=== PATIENT | male | born 1980 | race Caucasian/White ===

== ENCOUNTER 2025-08-26 08:48 | Emergency (ER) | payer OTHER, SELFPAY ==
[2025-08-26 08:54] VITALS: BP 171/105
[2025-08-26 09:16] VITALS: BMI 27.3
--- NOTE | 2025-08-26 09:18 | ED.GENMED ---
History of Present Illness
General
Chief Complaint: Throat Problem
Source: patient
Exam Limitations: none
Time Seen by Provider: 08/26/25 09:08
Nursing documentation reviewed up to this point in time: agreed with
History of Present Illness
History of Present Illness:
45-year-old male who presents with throat discomfort and sharp pain upon swallowing, particularly on the left side. The symptoms began last night after he consumed a piece of turkey with gristle without sufficient chewing, leading to immediate
discomfort. The patient describes the pain as 'sharp' and notes that it occurs a second after swallowing. Although the patient can drink, it is unclear if eating exacerbates the symptoms as he has not tried eating since the onset.Denies chest pain
or SOB.
Past History
Past History
ED Past Medical History: None
ED Past Surgical History: None
Social History
Tobacco: Non-smoker
Alcohol: Occasional
Personal:
Living: with family
Employment: Employed
Review of Systems
Review of Systems
Allergies reviewed?: Yes
All Other Systems: ROS reviewed and negative except as documented in HPI and ROS
EENT: Reports other (FB sensation left side throat)
Respiratory: Denies trouble breathing
Cardiac: Denies chest pain
ABD/GI: Denies abdominal pain
Phy Exam
Physical Exam
Physical Exam:
GENERAL: No acute distress. A&Ox3.
CONSTITUTIONAL: Afebrile.
EYES: clear, conjunctivae normal
ENMT: moist mucus membranes, Pharynx nl, speaking and swallowing well.
RESPIRATORY: Regular respirations, nonlabored, lungs clear.
CARDIOVASCULAR: Regular rate and rhythm, no murmurs, no rubs.
GI: Soft, nontender
MUSCULOSKELETAL: Moves with ease. Well perfused.
SKIN: Warm, dry, pink
PSYCH: Normal mood and affect. Well kept, interactive and appropriate
NEUROLOGIC: Awake, alert and oriented. No focal neurological deficits
Course
Orders/Labs/Results
Orders:
Orders
08/26/25 08:57
Electrocardiogram (*1) Urgent
Reason for Study: Chest Pain
08/26/25 08:59
EKG- Treatment ONCE
08/26/25 09:12
Soft Tissue, Neck [CR Soft Tissue Neck ] Urgent
Comment:
Reason For Exam: FB sensation
08/26/25 08:59
08/26/25 08:59
Vital Signs
Initial and Last Documented VS:
Initial Vital Signs
Temp Pulse Resp BP Pulse Ox
97.8 F 92 20 171/105 100
08/26/25 08:54 08/26/25 08:54 08/26/25 08:54 08/26/25 08:54 08/26/25 08:54
Last Documented Vital Signs
Temp Pulse Resp BP Pulse Ox
97.8 F 71 9 108/68 94
08/26/25 08:54 08/26/25 11:00 08/26/25 11:00 08/26/25 11:02 08/26/25 11:00
Pumper Gauger consulted with Physician
Pumper Gauger consulted with physician?: Yes
Name of Physician Consulted: Edi
MDM/Problems Addressed
Differential Diagnosis Includes:
Foreign body in throat, pharyngeal swelling, esophageal injury
MDM/Problems Addressed:
45-year-old male who presents with throat discomfort and sharp pain upon swallowing, particularly on the left side. The symptoms began last night after he consumed a piece of turkey with gristle without sufficient chewing, leading to immediate
discomfort. The patient describes the pain as 'sharp' and notes that it occurs a second after swallowing. Although the patient can drink, it is unclear if eating exacerbates the symptoms as he has not tried eating since the onset.Denies chest pain
or SOB.
Soft tissue lateral neck x-ray: Initial reading by this examiner, no radio opaque soft tissue foreign body is seen, radiology report agrees
Consulted ENT Dr. Potts
11:45 AM:
Dr. Vaca seen and scoped patient, no foreign body found. He states patient is good to go home.
Most likely scratched his esophagus with some soft tissue swelling.
*Pulse Oximetry
SaO2: 99
Oxygen Mode of Delivery: Room air
Patient hypoxic: no
*Critical Care Note
Total Time (30-74mins, 75-104mins- exclusive of procedures): Not Applicable
ED Attending Note
-
Portions of this chart may have been created with voice recognition software.� Occasional wrong word or��sound alike� substitutions may have occurred due to the inherent limitations of voice recognition software.
Discharge Plan
Departure
Patient Disposition: Home (Routine Discharge)
Date of Disposition: 08/26/25
Time of Disposition: 12:07
Patient with high blood pressure during this ER visit?: No
Condition: Good
Discharge Problem:
Esophageal abnormality
Prescriptions:
No Action
No Current Medications
0
Referrals:
Kaden Murguia MD [Family Provider, Family Practice] - As needed
Ryan Potts MD [Active, Otology] - As needed
Activity Restrictions/Additional Instructions:
As she discussed with Dr. Potts, no foreign body was visualized on the scope. You most likely have some soft tissue swelling from a scratch of the esophagus.
Sucking on ice chips or perhaps Cepacol lozenges or something similar may help soothe the area.
Return here immediately for trouble swallowing or speaking.
See the ENT doctor
Interventions
Interventions:
*Risk Screen - Suicide Last Done: 08/26/25 08:54
*General Assessment Last Done: 08/26/25 08:54
*Neglect/Abuse Screening Last Done: 08/26/25 08:54
*ED- Fall Risk Assessment Last Done: 08/26/25 09:16
*ED COVID-19 Vaccine History Last Done: 08/26/25 09:16
*ED Influenza Vaccine History Last Done: 08/26/25 09:16
*Nursing Disposition Last Done: 08/26/25 12:25
ED- Cardiac Assessment Last Done: 08/26/25 09:16
ED-EENT Assessment Last Done: 08/26/25 09:17
ED- Pulmonary Assessment Last Done: 08/26/25 09:16
Discharge Date and Time
Discharge Date/Time: 08/26/25 12:30
Print Language: SETSWANA
[2025-08-26 09:28] VITALS: BP 148/86
[2025-08-26 10:00] VITALS: BP 133/88
[2025-08-26 11:02] VITALS: BP 108/68
--- NOTE | 2025-08-26 11:55 | CON.MD ---
Consultation - Medical
-
Pt seen and full consult dictated.
Laryngoscopy performed at bedside. No FB noted; no erythema or pooling of secretions.
Cervical X ray reviewed.
No FB but he may have suffered a scratch of upper esophagus.
He may be discharged. He is instructed to return if symptoms worsen or he develops swelling, fever, etc.
== END 2025-08-26 12:30 | disposition home or self-care (01) ==
LOC: EMR 08:48
PROVIDERS: EMERGENCY PHYSICIAN Emergency Medicine; FAMILY PHYSICIAN Family Medicine
DX: K22.9 Disease of esophagus, unspecified (principal); K21.00 Gastro-esophageal reflux disease with esophagitis, without bleeding; Z88.0 Allergy status to penicillin; Z88.1 Allergy status to other antibiotic agents; Z88.2 Allergy status to sulfonamides
CPT/HCPCS: 99284; 70360; 93005